=== PATIENT | female | born 1970 | race Hispanic/Latino ===

== ENCOUNTER 2024-07-18 14:49 | Emergency (ER) | payer OTHER ==
[~2024-07-18] VITALS: Ht 160 cm; Wt 83.9 kg
[2024-07-18 14:51] VITALS: TEMP 99
[2024-07-18] MEDS ORDERED: ORPH100T4 PO (15:22)
[2024-07-18] MEDS ORDERED: MELO-108 PO (15:22)
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
[2024-07-18] MEDS: ketOROlac 15MG/ML VIAL (15MG/ML) IM ONE (16:13)
[2024-07-18] MEDS: HYDROcodone/APAP 5/325 1 TAB TABLET PO ONE (16:14)
[2024-07-18 16:48] VITALS: BP 106/68; PULSE 60; RESP 19; O2SAT 95
== END 2024-07-18 17:03 | disposition home or self-care (01) ==
LOC: EDH 14:49
DX: S13.4XXA Sprain of ligaments of cervical spine, initial encounter (principal); I10 Essential (primary) hypertension; V89.2XXA Person injured in unspecified motor-vehicle accident, traffic, initial encounter; Y93.89 Activity, other specified; Y92.89 Other specified places as the place of occurrence of the external cause; Y99.8 Other external cause status
CPT/HCPCS: 99283; 96372; J1885